=== PATIENT | female | born 1990 | race Caucasian/White ===

== ENCOUNTER → 2019-10-30 10:40 | Outpatient (CLI) | payer BC, SELFPAY ==
[2019-01-26 14:59] VITALS: BMI 28.8
[2019-10-30 12:48] LABS: Prolactin 15.2 ng/mL
== END ==
PROVIDERS: Referring Provider Internal Medicine Endocrinology, Diabetes & Metabolism; Visit Provider Internal Medicine Endocrinology, Diabetes & Metabolism
DX: D35.2 Benign neoplasm of pituitary gland (principal)
CPT/HCPCS: 36415; 84146